=== PATIENT | male | born 1930 | race Two or more races ===

== ENCOUNTER 2018-11-16 16:18 | Inpatient (IN) | payer MEDICARE, MEDICAID ==
[~2018-11-16] VITALS: Ht 177.8 cm; Wt 73.9 kg
[~2018-11-16 16:18] MED LIST: ASPI-1152 PO; LORA-259 PO; VALS1TAB54 PO
[2018-11-16 17:07] LABS: BASOPHILS % (AUTO) 0.3 % (0.0-2.0); EOSINOPHILS % (AUTO) 3.2 % (0.0-6.0); HEMATOCRIT 36 % (39-51); HEMOGLOBIN 11.6 g/dL (13.5-17.5); LYMPHOCYTES # (AUTO) 2.3 /CMM (0.8-4.8); LYMPHOCYTES % (AUTO) 24.6 % (20.0-44.0); MEAN CORPUSCULAR HGB CONC 33 g/dl (31.0-36.0); MEAN CORPUSCULAR VOLUME 95 fL (80-96); MONOCYTES # (AUTO) 0.9 /CMM (0.1-1.30); MONOCYTES % (AUTO) 9.1 % (2.0-12.0); NEUTROPHILS # (AUTO) 5.9 /CMM (1.8-8.9); NEUTROPHILS % (AUTO) 62.8 % (43.0-81.0); PLATELET COUNT (AUTO) 192 /CMM (150-450); RED BLOOD CELL COUNT(AUTO) 3.76 MIL/uL (4.5-6.0); WHITE BLOOD COUNT (AUTO) 9.4 K/uL (4.3-11.0)
[2018-11-16 17:15] LABS: CALCIUM, SERUM 8.1 mg/dL (8.5-10.1); CARBON DIOXIDE 22 mmol/L (21-32); CHLORIDE 109 mmol/L (98-107); CREATININE 1.5 mg/dL (0.6-1.3); GLUCOSE 121 mg/dL (74-106); POTASSIUM 4.8 mmol/L (3.5-5.1); SODIUM SERUM 138 mmol/L (136-145); UREA NITROGEN, BLOOD 29 mg/dL (7-18)
[2018-11-16 17:21] LABS: ALANINE AMINOTRANSFERASE 17 U/L (12-78); ALBUMIN 2.2 g/dL (3.4-5.0); ALKALINE PHOSPHATASE 79 U/L (46-116); ASPARTATE AMINOTRANSFERASE 26 U/L (15-37); BILIRUBIN,DIRECT 0.2 mg/dL (0.0-0.2); BILIRUBIN,TOTAL 0.8 mg/dL (0.2-1.0); TOTAL PROTEIN, SERUM 6.4 g/dL (6.4-8.2)
[2018-11-16] MEDS ORDERED: IV NS 0.9% 1,000 ML BAG IV ONE (17:30)
[2018-11-16] MEDS ORDERED: PIPERACILLIN /TAZOBACTAM 2.25 G in IV D5W 50 ML IV ONE (17:30)
--- NOTE | 2018-11-16 17:37 | NUR ---
Patient awake alert to name only his daughters @ bedside noted x 1 BM large soft brown keep patient clean and dry redness to buttocks ,noted Rt hand bruise from previous admission per daughter .Blood drwn done ,gown ,continue to monitor
--- NOTE | 2018-11-16 18:24 | NUR ---
PAGED [facility].
[2018-11-16] MEDS ORDERED: FAMO20TA8 PO (18:48)
[2018-11-16] MEDS ORDERED: TAMS-12 PO (18:48)
[2018-11-16] MEDS ORDERED: ATOR40TA PO (18:48)
[2018-11-16] MEDS ORDERED: BRIM5DRO2 OP (18:48)
[2018-11-16] MEDS ORDERED: LOSA1TAB42 PO (18:48)
[2018-11-16] MEDS ORDERED: CARV6.252 PO (18:48)
[2018-11-16] MEDS ORDERED: BIMA2.5D5 OP (18:48)
--- NOTE | 2018-11-16 19:40 | NUR ---
PAGED [facility].
--- NOTE | 2018-11-16 19:58 | NUR ---
REFLEX LACTIC DRAWN
--- NOTE | 2018-11-16 20:19 | NUR ---
REPORT GIVEN TO SERENA MAYEN FOR MIGDALIA
[2018-11-16] MEDS ORDERED: ONDANSETRON HCL/PF 4 MG/2 ML VIAL IVP PRN (20:30)
[2018-11-16] MEDS ORDERED: ACETAMINOPHEN 325 MG TABLET PO PRN (20:30)
[2018-11-16] MEDS ORDERED: Z GUARD REMEDY 2 OZ OINT TP PRN (20:30)
[2018-11-16 20:40] VITALS: BP 142/77
--- NOTE | 2018-11-16 20:40 | NUR ---
JIG BORING MACHINE SET UP OPERATOR OPENING NOTE RECEIVED PATIENT A/O X1 PATIENT HAS HX OF ADVANCED DEMENTIA AT THE MOMENT SHOWING NO SIGNS OF DISTRESS. PATIENT IS ON ROOM AIR WITH NO SOB. PATIENT IS ON THE MONITOR WITH SINUS RHYTHM AND A LONG NC OF 24,25. PATIENT IS ON BED REST WITH NO SIGNS OF EXTREMITY DIFFICULTY. PATIENT HAS A LT AC G#18 S/L, AND RT HAND G#20 PATENT AND FLUSHING. ALL SAFETY PRECAUTIONS APPLIED. WILL CONTINUE TO MONITOR PATIENT.
[2018-11-16] MEDS: ENOXAPARIN SODIUM 40 MG/0.4 ML DISP.SYRIN SQ SCH (21:56)
[2018-11-16] MEDS: TAMSULOSIN 0.4 MG CAP.SR.24H PO SCH (22:00)
[2018-11-16] MEDS: IV NS 0.9% 1,000 ML IV PRN (22:01)
--- NOTE | 2018-11-16 22:30 | NUR ---
RN NOTE PATIENT HAS ALTERED MENTAL STATUS, PUT IN AN ORDER FOR SWALLOWING EVALUATION. HELD FLOMAX MEDICATION UNTIL EVALUATION
[2018-11-16] MEDS: LATANOPROST EYE DROP 0.005% 2.5 ML BOTTLE OP SCH (23:14)
[2018-11-17] VITALS (7 sets, daily range): BP systolic 116–145; BP diastolic 45–72
[2018-11-17 07:08] LABS: BASOPHILS % (AUTO) 0.3 % (0.0-2.0); EOSINOPHILS % (AUTO) 6.5 % (0.0-6.0); HEMATOCRIT 30 % (39-51); HEMOGLOBIN 10.1 g/dL (13.5-17.5); LYMPHOCYTES # (AUTO) 2.2 /CMM (0.8-4.8); LYMPHOCYTES % (AUTO) 30.3 % (20.0-44.0); MEAN CORPUSCULAR HGB CONC 34 g/dl (31.0-36.0); MEAN CORPUSCULAR VOLUME 91 fL (80-96); MONOCYTES # (AUTO) 0.6 /CMM (0.1-1.30); MONOCYTES % (AUTO) 8.6 % (2.0-12.0); NEUTROPHILS # (AUTO) 3.9 /CMM (1.8-8.9); NEUTROPHILS % (AUTO) 54.3 % (43.0-81.0); PLATELET COUNT (AUTO) 153 /CMM (150-450); RED BLOOD CELL COUNT(AUTO) 3.27 MIL/uL (4.5-6.0); WHITE BLOOD COUNT (AUTO) 7.1 K/uL (4.3-11.0)
--- NOTE | 2018-11-17 07:10 | NUR ---
HOUSEKEEPER NANNY CLOSING NOTES PATIENT IN BED NO DISTRESS NO SOB. ALL SAFETY PRECAUTION APPLIED. ENDORSED PATIENT TO MORNING NURSE
[2018-11-17 07:18] LABS: CALCIUM, SERUM 7.3 mg/dL (8.5-10.1); CREATININE 1.2 mg/dL (0.6-1.3); POTASSIUM 4.4 mmol/L (3.5-5.1)
[2018-11-17 07:19] LABS: MAGNESIUM 1.8 mg/dL (1.8-2.4); PHOSPHORUS 3.5 mg/dL (2.5-4.9)
[2018-11-17] MEDS ORDERED: LOSARTAN POTASSIUM 50 MG TABLET PO SCH (09:00)
[2018-11-17] MEDS ORDERED: ATORVASTATIN 40 MG TABLET PO SCH (09:00)
[2018-11-17] MEDS: IV NS 0.9% 1,000 ML IV PRN (09:54)
[2018-11-17 11:06] LABS: APPEARANCE,URINE Clear (CLEAR); BILIRUBIN,URINE Negative (NEGATIVE); BLOOD, URINE Trace-lysed Ery/uL (NEGATIVE); COLOR,URINE Yellow (YELLOW); KETONES,URINE Negative (NEGATIVE); LEUKOCYTE ESTERASE ,URINE Small (NEGATIVE); NITRITE, URINE Negative (NEGATIVE); PROTEIN,URINE Trace mg/dl (NEGATIVE); UGLUCOSE Negative (NEGATIVE); UROBILINOGEN,URINE 0.2 EU/dL (0.2)
[2018-11-17 11:15] LABS: BACTERIA,URINE Rare /HPF (None Seen); SQUAMOUS EPITHELIAL CELL,UR Rare /HPF (None Seen)
[2018-11-17] MEDS: CARVEDILOL 6.25 MG TABLET PO SCH ×2 (11:39→19:09)
[2018-11-17] MEDS: FAMOTIDINE (20 MG) 20 MG TABLET PO SCH (11:41)
[2018-11-17] MEDS ORDERED: ZOSYN IVPB 3.375 G in IV D5W 50ml IV ONE (12:00)
--- NOTE | 2018-11-17 18:00 | NUR ---
MS RN CLOSING PATIENT REMAINS A/OX2, ANSWERING QUESTIONS OCCASIONALLY. SLEEPING INTERMITTENTLY THROUGHOUT SHIFT. ON ROOM AIR, NO RESPIRATORY DISTRESS NOTED THROUGHOUT SHIFT. DOWNGRADED TO TELE THIS SHIFT PER DR. VASQUEZ. REMAINED NPO EXCEPT MEDS. IVF RUNNING ORDERED. EEG DONE THIS SHIFT. FAMILY AWARE OF POC. LEFT MESSAGE WITH VALDEZ RAMIREZ FOR FAMILY'S REQUEST FOR DME UPON D/C. NO SIGNIFICANT CHANGES THROUGHOUT SHIFT
--- NOTE | 2018-11-17 19:05 | NUR ---
RN OPENING NOTES: PATIENT IN BED, AWAKE, AND VERBALLY RESPONSIVE. NO SOB. NO PAIN. SAFETY MEASURES IMPLEMENTED. BED LOCKED AND IN LOWEST POSITION. (R) HAND 20G PATENT AND INTACT RUNNING NS 75 MLS/HR. PATIENT IS NPO EXCEPT MEDS. CALL LIGHT PLACED WITHIN REACH. WILL CONT. TO MONITOR.
[2018-11-17] MEDS: PIPERACILLIN /TAZOBACTAM 3.375 G in IV D5W 100 ML IV SCH (20:10)
[2018-11-17] MEDS: ENOXAPARIN SODIUM 40 MG/0.4 ML DISP.SYRIN SQ SCH (20:12)
[2018-11-17] MEDS: TAMSULOSIN 0.4 MG CAP.SR.24H PO SCH (21:36)
[2018-11-17] MEDS: LATANOPROST EYE DROP 0.005% 2.5 ML BOTTLE OP SCH (21:36)
[2018-11-18] MEDS: IV NS 0.9% 1,000 ML IV PRN (03:03)
[2018-11-18 04:00] VITALS: BP 152/71
[2018-11-18] MEDS: PIPERACILLIN /TAZOBACTAM 3.375 G in IV D5W 100 ML IV SCH ×2 (04:34→13:39)
--- NOTE | 2018-11-18 07:00 | NUR ---
RN CLOSING NOTES: PATIENT IN BED, ASLEEP, BUT EASILY AROUSABLE TO VERBAL STIMULI AND LIGHT TOUCH. NO RESPIRATORY DISTRESS. NO C/O PAIN. PATIENT REMAINS NPO EXCEPT MEDS. SAFETY PRECAUTIONS IMPLEMENTED. WILL ENDORSE TO AM SHIFT NURSE FOR CONTINUITY OF CARE.
[2018-11-18 07:06] LABS: BASOPHILS % (AUTO) 0.6 % (0.0-2.0); EOSINOPHILS % (AUTO) 5.5 % (0.0-6.0); HEMATOCRIT 32 % (39-51); HEMOGLOBIN 10.5 g/dL (13.5-17.5); LYMPHOCYTES # (AUTO) 1.9 /CMM (0.8-4.8); LYMPHOCYTES % (AUTO) 23.1 % (20.0-44.0); MEAN CORPUSCULAR HGB CONC 33 g/dl (31.0-36.0); MEAN CORPUSCULAR VOLUME 92 fL (80-96); MONOCYTES # (AUTO) 0.6 /CMM (0.1-1.30); MONOCYTES % (AUTO) 7.6 % (2.0-12.0); NEUTROPHILS # (AUTO) 5.1 /CMM (1.8-8.9); NEUTROPHILS % (AUTO) 63.2 % (43.0-81.0); PLATELET COUNT (AUTO) 151 /CMM (150-450); RED BLOOD CELL COUNT(AUTO) 3.43 MIL/uL (4.5-6.0)
--- NOTE | 2018-11-18 07:15 | NUR ---
MS RN OPENING PATIENT IN BED, SLEEPING, AROUSABLE TO NAME. A/Ox1. ON ROOM AIR, NO RESPIRATORY DISTRESS. CONDOM CATH IN PLACE DRAINING CLEAR YELLOW URINE. NPO EXCEPT MEDS, NOTED TO HAVE 69 BG THIS AM, WILL F/U W/ . R HAND 20G INFUSING NS @75mL/HR, L AC 18G SL. BED ALARM ON, CALL LIGHT WITHIN PLACE, PATIENT UNABLE TO MAKE NEEDS KNOWN, WILL CONT TO MONITOR
[2018-11-18 07:22] LABS: CALCIUM, SERUM 7.7 mg/dL (8.5-10.1); CREATININE 1.2 mg/dL (0.6-1.3); PHOSPHORUS 3.5 mg/dL (2.5-4.9); POTASSIUM 4.3 mmol/L (3.5-5.1)
[2018-11-18 08:00] VITALS: BP 141/60
[2018-11-18] MEDS: CARVEDILOL 6.25 MG TABLET PO SCH ×2 (10:08→16:49)
[2018-11-18] MEDS: FAMOTIDINE (20 MG) 20 MG TABLET PO SCH (10:08)
[2018-11-18] MEDS ORDERED: CEPH-569 PO (14:23)
[2018-11-18 16:49] VITALS: BP 142/82
--- NOTE | 2018-11-18 19:00 | NUR ---
DC NOTE WOUND PICS TAKEN
--- NOTE | 2018-11-18 19:20 | NUR ---
MS RN NOTE CALLED PATIENT FAMILY, TO NOTIFY DAUGHTER THE CAREGIVER OF P ICK TIME. D/C INSTRUCTIONS GIVEN TO DTR. DTR VERBALIZE UNDERSTANDING.AMBULANZ ESTIMATED RESPIRATORY MEDICINE PHYSICIAN TIME WAS 1900. EXPLAINED TO FAMILY SOMETIMES TRANSPORTATION IS LATE. FAMILY VERBALIZE UNDERSTANDING.
--- NOTE | 2018-11-18 19:50 | NUR ---
MS RN NOTE AMBULANZ ARRIVED, REPORT GIVEN TO TRANSPORTATION. IV LINES REMOVED, ASHRAF CATH REMOVED, V/S TAKEN WNL. TRANSFER OF CARE GIVEN OVER TO TRANSPORTATION TEAM, DAUGHTER MADE AWARE OF PATIENT FORMATION FRACTURING OPERATOR. PATIENT TRANSFERRED OUT OF HOSPITAL
[2018-11-19] MEDS ORDERED: VALSARTAN 80 MG TABLET PO SCH (09:00)
== END 2018-11-18 20:00 | disposition home health service (06) | DRG 682 ==
LOC: ER 16:19 → TELE1 20:04 → MEDSG1 11-17 20:19
PROVIDERS: ADMIT Nurse Practitioner Acute Care; ATTEND Student in an Organized Health Care Education/Training Program
DX: N17.0 Acute kidney failure with tubular necrosis (principal); G93.41 Metabolic encephalopathy; I21.A1 Myocardial infarction type 2; I50.32 Chronic diastolic (congestive) heart failure; E87.2 Acidosis; N39.0 Urinary tract infection, site not specified; Z95.1 Presence of aortocoronary bypass graft; I11.0 Hypertensive heart disease with heart failure; E88.09 Other disorders of plasma-protein metabolism, not elsewhere classified; Z95.5 Presence of coronary angioplasty implant and graft; E11.9 Type 2 diabetes mellitus without complications; E78.5 Hyperlipidemia, unspecified; I25.10 Atherosclerotic heart disease of native coronary artery without angina pectoris; F03.90 Unspecified dementia, unspecified severity, without behavioral disturbance, psychotic disturbance, mood disturbance, and anxiety; R55 Syncope and collapse; E86.0 Dehydration; D49.4 Neoplasm of unspecified behavior of bladder
CPT/HCPCS: 36415; 70450-TC; 71045-TC; 80048-TC; 80061-TC; 80076-TC; 81000-TC; 82962-TC; 83605-TC; 83735-TC; 84100-TC; 84484-TC; 85025-TC; 85730-TC; 87040-TC; 87081-TC; 87086-TC; 92526; 92611-TC; 93307-TC; 95819-TC; A4349; G0378; J1650; J2543; J7030; J7060

== ENCOUNTER 2019-08-07 22:31 | Inpatient (IN) | payer MEDICARE, OTHER ==
[~2019-08-07] VITALS: Ht 165.1 cm; Wt 65.8 kg
[~2019-08-07 22:31] MED LIST changes: -ASPI-1152 PO; +ATOR40TA PO; +BIMA2.5D5 OP; +BRIM5DRO2 OP; +CARV6.252 PO; +CEPH-569 PO; +FAMO20TA8 PO; -LORA-259 PO; +LOSA1TAB42 PO; +TAMS-12 PO; -VALS1TAB54 PO
[2019-08-07] MEDS ORDERED: NITROGLYCERIN 0.4 MG/TAB BOTTLE ONE (22:42)
--- NOTE | 2019-08-07 22:45 | NUR ---
PT [id number] FROM HOME FOR SOB SATTING 87% RA. PLACED ON VIA N/C SATTING 100% . NO ACUTE DISTRESS NOTED +HIGH BP; HX DEMENTIA, NON VERBAL. PT CONNECTED TO THE COMPONENT OVERHAUL OPERATOR AND POX. DR BEGUM AT BEDSIDE
--- NOTE | 2019-08-07 22:50 | NUR ---
BLOOD COLLECTED AND SENT TO LAB
[2019-08-07 22:53] LABS: BASOPHILS # (AUTO) 0.1 /CMM (0.0-0.2); BASOPHILS % (AUTO) 0.6 % (0.0-2.0); EOSINOPHILS % (AUTO) 1.2 % (0.0-6.0); HEMATOCRIT 35 % (39-51); HEMOGLOBIN 11.4 g/dL (13.5-17.5); LYMPHOCYTES # (AUTO) 4.2 /CMM (0.8-4.8); LYMPHOCYTES % (AUTO) 39.3 % (20.0-44.0); MEAN CORPUSCULAR HGB CONC 33 g/dl (31.0-36.0); MEAN CORPUSCULAR VOLUME 92 fL (80-96); MONOCYTES # (AUTO) 0.8 /CMM (0.1-1.30); MONOCYTES % (AUTO) 7.8 % (2.0-12.0); NEUTROPHILS # (AUTO) 5.4 /CMM (1.8-8.9); NEUTROPHILS % (AUTO) 51.1 % (43.0-81.0); PLATELET COUNT (AUTO) 360 /CMM (150-450); WHITE BLOOD COUNT (AUTO) 10.6 K/uL (4.3-11.0)
[2019-08-07] MEDS ORDERED: NITROGLYCERIN 0.4 MG/TAB BOTTLE SL ONE ×2 (23:00)
[2019-08-07 23:05] LABS: CARBON DIOXIDE 27 mmol/L (21-32); CHLORIDE 110 mmol/L (98-107); CREATININE 1.4 mg/dL (0.6-1.3); GLUCOSE 141 mg/dL (74-106); POTASSIUM 4.4 mmol/L (3.5-5.1); SODIUM SERUM 143 mmol/L (136-145); UREA NITROGEN, BLOOD 20 mg/dL (7-18)
[2019-08-07] MEDS ORDERED: LIDOCAINE 2% JEL UROJET 10 ML MM ONE (23:06)
[2019-08-07 23:18] LABS: ALANINE AMINOTRANSFERASE 14 U/L (12-78); ALBUMIN 2.7 g/dL (3.4-5.0); ALKALINE PHOSPHATASE 63 U/L (46-116); ASPARTATE AMINOTRANSFERASE 24 U/L (15-37); B-TYPE NATRIURETIC PEPTIDE 33015 PG/ML (0-125); BILIRUBIN,DIRECT 0.2 mg/dL (0.0-0.2); BILIRUBIN,TOTAL 0.5 mg/dL (0.2-1.0); TOTAL PROTEIN, SERUM 6.5 g/dL (6.4-8.2)
[2019-08-07] MEDS ORDERED: FUROSEMIDE 40 MG/4 ML VIAL IV ONE (23:30)
[2019-08-07 23:41] LABS: APPEARANCE,URINE Cloudy (CLEAR); BILIRUBIN,URINE SMALL (NEGATIVE); BLOOD, URINE Large Ery/uL (NEGATIVE); COLOR,URINE Dark (YELLOW); KETONES,URINE Negative (NEGATIVE); LEUKOCYTE ESTERASE ,URINE Large (NEGATIVE); NITRITE, URINE Positive (NEGATIVE); PH,URINE 5.5 (5.0-8.0); PROTEIN,URINE 100 mg/dl (NEGATIVE); UGLUCOSE Negative (NEGATIVE)
--- NOTE | 2019-08-07 23:50 | NUR ---
[place] [phone] PT'S DAUGHTER
[2019-08-08 00:19] LABS: BACTERIA,URINE Few /HPF (None Seen); WBC,URINE 51-80 /HPF (0-3)
[2019-08-08 00:20] LABS: SQUAMOUS EPITHELIAL CELL,UR Few /HPF (None Seen)
[2019-08-08] MEDS ORDERED: MAG HYDROX/AL HYDROX/SIMETH 30 ML UDC PO PRN (00:30)
[2019-08-08] MEDS ORDERED: Z GUARD REMEDY 2 OZ OINT TP PRN (00:30)
[2019-08-08] MEDS ORDERED: ACETAMINOPHEN 325 MG TABLET PO PRN (00:30)
[2019-08-08] MEDS ORDERED: ONDANSETRON HCL/PF 4 MG/2 ML VIAL IVP PRN (00:30)
[2019-08-08] MEDS ORDERED: MAGNESIUM HYDROXIDE 30 ML UDC PO PRN (00:30)
[2019-08-08] MEDS ORDERED: CEFTRIAXONE 1 G in IV D5W 50 ML IV SCH (00:30)
[2019-08-08] MEDS ORDERED: ZOLPIDEM TARTRATE 5 MG TABLET PO PRN (00:30)
[2019-08-08] MEDS ORDERED: HYDROCODONE/APAP 5/325MG 1 EACH TABLET PO PRN (00:30)
[2019-08-08 01:00] VITALS: BP 138/74
--- NOTE | 2019-08-08 01:00 | NUR ---
CASH SALES AUDIT CLERK NOTES PATIENT ARRIVED TO UNIT VIA ACLS PROTOCOL, BROUGHT UP BY REYNA. PATIENT NON-VERBAL, AWAKE IN BED, RESPONDS TO LIGHT PAIN. ON NASAL CANNULA, 4 LITERS, TOLERATING SETTING WITH NON-LABORED BREATHING, WITH NON-PRODUCTIVE COUGH, AND SPO2 100%. IV ACCESS ON LEFT FOREARM 18 GAUGE, SALINE LOCK, INTACT AND PATENT. ASHRAF CATHETER IN PLACE, SKIN WARM AND DRY TO TOUCH. PLACED ON CISTERN ROOM WORKING SUPERVISOR. PATIENT PRESENTS NO PAIN OR DISCOMFORT, PROVIDED COMFORT MEASURES TO PATIENT. SAFETY PRECAUTIONS IN PLACE WITH BED LOCKED, BED IN SEMI-FOWLERS POSITION, BED ALARM ON, BILATERAL SIDE RAILS UP, AND CALL LIGHT WITHIN EASY REACH OF PATIENT. WILL CONTINUE TO MONITOR PATIENT.
[2019-08-08] MEDS ORDERED: CEFTRIAXONE 1 G VIAL ONE (01:25)
[2019-08-08 04:00] VITALS: BP 154/65
[2019-08-08] MEDS: FUROSEMIDE 40 MG/4 ML VIAL IV SCH ×3 (05:43→17:44)
--- NOTE | 2019-08-08 06:35 | NUR ---
DOCUMENT CLERK NOTES PATIENT IN BED SLEEPING, AWAKEN BY LIGHT TOUCH, NON-VERBAL. SPOKE WITH DAUGHTER, JEANNIE, STATED THAT HER DAD TOLERATES PUREE DIET. ON NASAL CANNULA 4 LITERS, NO RESPIRATORY DISTRESS AT THIS TIME. IV ACCESS INTACT AN PATENT SALINE LOCK. ASHRAF CATHETER INTACT AND IN PLACE. SKIN KEPT CLEAN AND DRY. PROVIDED COMFORT MEASURES TO PATIENT, AND MET ALL OF PATIENT'S NEEDS. PATIENT PRESENTS NO PAIN OR DISCOMFORT. SAFETY PRECAUTIONS IN PLACE WITH THE BED IN LOWEST LOCKED POSITION, BED LOCKED, BILATERAL SIDE RAILS UP, BED ALARM ON, AND CALL LIGHTS WITHIN REACH. WILL ENDORSE PLAN OF CARE TO UPCOMING DAYSHIFT NURSE.
[2019-08-08 08:00] VITALS: BP 155/75
[2019-08-08 08:24] LABS: BASOPHILS % (AUTO) 0.3 % (0.0-2.0); EOSINOPHILS % (AUTO) 0.5 % (0.0-6.0); HEMATOCRIT 35 % (39-51); HEMOGLOBIN 11.3 g/dL (13.5-17.5); LYMPHOCYTES # (AUTO) 2.6 /CMM (0.8-4.8); LYMPHOCYTES % (AUTO) 30.6 % (20.0-44.0); MEAN CORPUSCULAR HGB CONC 32 g/dl (31.0-36.0); MEAN CORPUSCULAR VOLUME 94 fL (80-96); MONOCYTES # (AUTO) 0.7 /CMM (0.1-1.30); MONOCYTES % (AUTO) 8.9 % (2.0-12.0); NEUTROPHILS % (AUTO) 59.7 % (43.0-81.0); PLATELET COUNT (AUTO) 273 /CMM (150-450); RED BLOOD CELL COUNT(AUTO) 3.77 MIL/uL (4.5-6.0); WHITE BLOOD COUNT (AUTO) 8.3 K/uL (4.3-11.0)
[2019-08-08 08:31] LABS: ALANINE AMINOTRANSFERASE 12 U/L (12-78); ALBUMIN 2.6 g/dL (3.4-5.0); ALKALINE PHOSPHATASE 58 U/L (46-116); ASPARTATE AMINOTRANSFERASE 26 U/L (15-37); BILIRUBIN,TOTAL 0.5 mg/dL (0.2-1.0); CALCIUM, SERUM 8.4 mg/dL (8.5-10.1); CARBON DIOXIDE 24 mmol/L (21-32); CHLORIDE 108 mmol/L (98-107); CREATININE 1.4 mg/dL (0.6-1.3); GLUCOSE 105 mg/dL (74-106); MAGNESIUM 2.2 mg/dL (1.8-2.4); PHOSPHORUS 4.4 mg/dL (2.5-4.9); POTASSIUM 4.4 mmol/L (3.5-5.1); SODIUM SERUM 142 mmol/L (136-145); TOTAL PROTEIN, SERUM 6.7 g/dL (6.4-8.2); UREA NITROGEN, BLOOD 19 mg/dL (7-18)
[2019-08-08] MEDS: LOSARTAN POTASSIUM 50 MG TABLET PO SCH (08:34)
[2019-08-08] MEDS: ASPIRIN 81 MG TAB.CHEW PO SCH (08:35)
[2019-08-08] MEDS: ENOXAPARIN SODIUM 30 MG/0.3 ML DISP.SYRIN SQ SCH (08:35)
[2019-08-08] MEDS: CARVEDILOL 6.25 MG TABLET PO SCH ×2 (08:35→17:45)
[2019-08-08] MEDS: FAMOTIDINE (20 MG) 20 MG TABLET PO SCH (08:35)
[2019-08-08] MEDS: BRIMONIDINE TARTRATE OPHT SOLN 5 ML BOTTLE OP SCH (09:00)
[2019-08-08] MEDS ORDERED: CLONIDINE HCL 0.1 MG TABLET PO PRN (11:00)
[2019-08-08 16:00] VITALS: BP 131/63
--- NOTE | 2019-08-08 17:25 | NUR ---
Per family, specifically older daughter patient cannot have F/C due to prostate problems. F/C replaced by condom cath and aware.
[2019-08-08] MEDS: LATANOPROST EYE DROP 0.005% 2.5 ML BOTTLE OP SCH (17:45)
[2019-08-08] MEDS ORDERED: BIMATOPROST 2.5 ML BOTTLE OP SCH (18:00)
--- NOTE | 2019-08-08 18:37 | NUR ---
Patient resting in bed comfortably, on TELE SR with PVS HR 68. Patient on O2 3l saturating above 95%.Breathing unlabored and even. Condom catheter in place; output 2200ml. All needs attended, patient kept clean and dry. IV line intact and patent ; flushing well. On puree diet ; noted with good appetite. Safety precautions in place, bed in locket and lower position , side rails upx3 , call light within reach. Will endorse to next shift for MIGDALIA
--- NOTE | 2019-08-08 19:14 | NUR ---
DRUM DRIER OPERATOR NOTES PATIENT RECEIVED IN BED RESTING COMFORTABLY, ON NASAL CANNULA 3 LITERS, WITH NO RESPIRATORY DISTRESS AT THIS TIME, NO SOB NOTED, AND WITH EVEN NON-LABORED BREATHING. PATIENT NON-VERBAL, RESPONSIVE TO NAME AND LIGHT TOUCH. IV ACCESS INTACT AND PATENT ON LEFT FOREARM. ON TON CONTAINER SHIPPER, 70'S. CONDOM CATHETER IN PLACE, NO LEAKAGE PRESENT. SKIN WARM AND DRY TO TOUCH. PATIENT PRESENTS WITH NO PAIN OR DISCOMFORT AT THIS TIME. SAFETY PRECAUTIONS IMPLEMENTED, WITH BED LOCKED, BED IN THE LOWEST POSITION, BILATERAL SIDE RAILS UP, AND CALL LIGHT WITHIN EASY REACH. WILL CONTINUE TO MONITOR PATIENT.
[2019-08-08 20:00] VITALS: BP 152/71
[2019-08-08 20:04] VITALS: BP 152/71
[2019-08-08] MEDS: ATORVASTATIN 40 MG TABLET PO SCH (21:46)
[2019-08-08] MEDS: TAMSULOSIN 0.4 MG CAP.SR.24H PO SCH (21:46)
[2019-08-08] MEDS: CEFTRIAXONE 1 G in IV D5W 50 ML IV SCH (22:23)
--- NOTE | 2019-08-08 22:50 | NUR ---
PROFESSOR OF EDUCATION NOTES REPORT GIVEN TO SERENA MOLINA. PATIENT RESTING COMFORTABLY IN BED, NASAL CANNULA, 3 LITERS. WITH NO SIGNS OF RESPIRATORY DISTRESS AT THIS TIME, WITH NON-LABORED BREATHING. IV ACCESS INTACT AND PATENT ON LEFT FOREARM. SAFETY PRECAUTIONS IMPLEMENTED BED LOCKED, BED IN THE LOWEST POSITION, AND CALL LIGHT WITHIN EASY REACH OF PATIENT.
[2019-08-09] VITALS: BP 138/61
[2019-08-09] MEDS: FUROSEMIDE 40 MG/4 ML VIAL IV SCH ×3 (00:28→12:00)
[2019-08-09 04:00] VITALS: BP 147/73
[2019-08-09 04:53] LABS: CREATININE, URINE < 13.0 MG/DL (30.0-125.0); URINE SODIUM, RANDOM 132 mmol/l (40-220); URINE TOTAL PROTEIN 47.7 mg/dL (0-11.9)
[2019-08-09 05:09] LABS: APPEARANCE,URINE CLEAR (CLEAR); BILIRUBIN,URINE NEGATIVE (NEGATIVE); BLOOD, URINE LARGE Ery/uL (NEGATIVE); COLOR,URINE RED (YELLOW); KETONES,URINE NEGATIVE (NEGATIVE); LEUKOCYTE ESTERASE ,URINE SMALL (NEGATIVE); NITRITE, URINE NEGATIVE (NEGATIVE); PH,URINE 5.5 (5.0-8.0); PROTEIN,URINE 30 mg/dl (NEGATIVE); UGLUCOSE NEGATIVE (NEGATIVE); UROBILINOGEN,URINE 0.2 EU/dL (0.2)
[2019-08-09 05:13] LABS: BACTERIA,URINE Few /HPF (None Seen); RBC,URINE TOO NUMEROUS TO COUN /HPF (0-2); SQUAMOUS EPITHELIAL CELL,UR Rare /HPF (None Seen); WBC,URINE 21-50 /HPF (0-3)
[2019-08-09 05:54] LABS: EOSINOPHIL,URINE None Seen
[2019-08-09 06:45] LABS: BASOPHILS % (AUTO) 0.5 % (0.0-2.0); EOSINOPHILS % (AUTO) 1.6 % (0.0-6.0); HEMATOCRIT 38 % (39-51); HEMOGLOBIN 12.6 g/dL (13.5-17.5); LYMPHOCYTES # (AUTO) 2.9 /CMM (0.8-4.8); LYMPHOCYTES % (AUTO) 31.9 % (20.0-44.0); MEAN CORPUSCULAR HGB CONC 33 g/dl (31.0-36.0); MEAN CORPUSCULAR VOLUME 91 fL (80-96); MONOCYTES # (AUTO) 0.8 /CMM (0.1-1.30); MONOCYTES % (AUTO) 8.6 % (2.0-12.0); NEUTROPHILS # (AUTO) 5.3 /CMM (1.8-8.9); NEUTROPHILS % (AUTO) 57.4 % (43.0-81.0); PLATELET COUNT (AUTO) 305 /CMM (150-450); RED BLOOD CELL COUNT(AUTO) 4.22 MIL/uL (4.5-6.0); WHITE BLOOD COUNT (AUTO) 9.2 K/uL (4.3-11.0)
--- NOTE | 2019-08-09 06:52 | NUR ---
PHARMACY BILLING ADJUDICATOR CLOSING NOTES PATIENT IN BED RESTING, NON-VERBAL, SLIGHT MUMBLED. ON 3L OF O2 WITH BREATHING EVEN AND UNLABORED, NO SOB NOTED. TELE MONITORS READING SR WITH PVC. IV LOCATED ON LFA #18 TKO. NO COMPLAINTS OF PAIN OR DISCOMFORT- NO FACIAL GRIMACING NOTED. SAFETY PRECAUTIONS IN PLACE WITH BED IN LOWEST POSITION, CALL LIGHT WITHIN REACH, BREAKS ON, SIDE RAILS UP. ALL NEEDS ATTENDED TO. PATIENT KEPT CLEAN AND DRY THROUGHOUT THE NIGHT. WILL ENDORSE TO ONCOMING SHIFT ABOUT MIGDALIA.
[2019-08-09 07:01] LABS: CALCIUM, SERUM 8.5 mg/dL (8.5-10.1); CREATININE 1.3 mg/dL (0.6-1.3); PHOSPHORUS 3.9 mg/dL (2.5-4.9); POTASSIUM 3.1 mmol/L (3.5-5.1)
[2019-08-09 07:04] LABS: THYROID STIMULATING HORMONE 1.147 uIU/mL (0.358-3.74)
--- NOTE | 2019-08-09 07:30 | NUR ---
HOME CARE MUSIC THERAPIST Open Notes Patient is in bed slightly mumbles. No signs of distress with 3L Nasal Cannula. L FA #18G infusing TKO NS at 3 ml/hr. Bed is in low position with side rails up x 2 for safety. Condom catheter is intact. Call light is within reach. Will continue to monitor.
[2019-08-09 08:00] VITALS: BP 102/58
[2019-08-09] MEDS: ASPIRIN 81 MG TAB.CHEW PO SCH (08:48)
[2019-08-09] MEDS: CARVEDILOL 6.25 MG TABLET PO SCH ×2 (08:50→16:33)
[2019-08-09] MEDS: LOSARTAN POTASSIUM 50 MG TABLET PO SCH (08:51)
[2019-08-09] MEDS: FAMOTIDINE (20 MG) 20 MG TABLET PO SCH (08:52)
[2019-08-09] MEDS: ENOXAPARIN SODIUM 30 MG/0.3 ML DISP.SYRIN SQ SCH (08:53)
[2019-08-09] MEDS: BRIMONIDINE TARTRATE OPHT SOLN 5 ML BOTTLE OP SCH (08:54)
[2019-08-09] MEDS: POTASSIUM CHLORIDE 20 MEQ TAB.PRT.SR PO SCH ×3 (08:56→11:21)
[2019-08-09 16:00] VITALS: BP 121/56
[2019-08-09 16:42] VITALS: BP 121/56
[2019-08-09] MEDS: LATANOPROST EYE DROP 0.005% 2.5 ML BOTTLE OP SCH (17:22)
--- NOTE | 2019-08-09 18:42 | NUR ---
SWATCH PASTER Closing Notes Patient is calm and resting, nonverbal. With no signs of distress. IV L FA #18G intact. Scheduled medication were given. Condom cath intact. Bed is in low position side rails up x 2 for safety. Call light within reach. Will endorse to night shift supervisor.
[2019-08-09 20:00] VITALS: BP_SYST 141; BP_SYST 172; BP_DIAS 72; BP_DIAS 80; BP_DIAS 83
--- NOTE | 2019-08-09 20:00 | NUR ---
MS/RN OPENING NOTES PATIENT RESTING IN BED ON OXYGEN VIA NC AT 3LITER, RESPIRATIONS EVEN AND UNLABORED, LEFT SIDED WEAKNEST, ON BED REST, ASLEEP BUT AROUSES, WITHSACRAL AND PERINEAL REDNESS, ON CARDIAC DIET AND TO GFED AND TO CRUSH WITH MEDS, LEFT FORE ARM GAUGE 18 PATENT, CONDOM CATHETER DRAINING URINE, RECEIVED ENDORSEMENT FROM AM RN FOR MIGDALIA, TO MONITOR PATIENT AND CONTINUE CARE, BED LOCKED, CALL LIGHTS WITHIN REACH, OFFER AND PROVIDE FLUIDS.
[2019-08-09] MEDS: ATORVASTATIN 40 MG TABLET PO SCH (21:34)
[2019-08-09] MEDS: TAMSULOSIN 0.4 MG CAP.SR.24H PO SCH (21:34)
[2019-08-09] MEDS: CEFTRIAXONE 1 G in IV D5W 50 ML IV SCH (22:37)
--- NOTE | 2019-08-10 06:16 | NUR ---
323-1 MS/RN NOTES PATIENT IN BED, ABLE TO SLEEP DURING THE NIGHT, MONITORED AND PROVIDED CARE, ON OXYGEN VIA NC AT 3LITER AND TAPERED, KEPT SKIN INTACT AND DRY, ASSISTED IN REPOSITIONING AND TURNING. BED LOCKED, CALL LIGHTS WITHIN REACH, ABLE TO DRINK MINIMAL FLUIDS AND OFFERED AND PROVIDED SOME SNACKS, KEPT HOB WHILE BEING FED. ASPIRATIONS AND FALL PRECAUTIONS, LEFT FOREARM GAUGE 18 PATENT, CONDOM CATHETER PLACED AND DRAINING ADEQUATE URINE OUTPUT. TO ENDORSE TO AM RN FOR MIGDALIA.
--- NOTE | 2019-08-10 07:30 | NUR ---
MS RN Open Notes Patient is in bed awake and alert, non-verbal. No signs of distress with 3L of Nasal Cannula. IV L FA #18G. Condom catheter intact with visible urine drainage. Bed is in low position with side rails up x 2 for safety. Call light is within reach. Will continue to monitor.
[2019-08-10 07:34] LABS: BASOPHILS % (AUTO) 0.4 % (0.0-2.0); EOSINOPHILS % (AUTO) 2.4 % (0.0-6.0); HEMATOCRIT 34 % (39-51); HEMOGLOBIN 11.2 g/dL (13.5-17.5); LYMPHOCYTES # (AUTO) 2.6 /CMM (0.8-4.8); LYMPHOCYTES % (AUTO) 33.2 % (20.0-44.0); MEAN CORPUSCULAR HGB CONC 33 g/dl (31.0-36.0); MEAN CORPUSCULAR VOLUME 91 fL (80-96); MONOCYTES # (AUTO) 0.8 /CMM (0.1-1.30); MONOCYTES % (AUTO) 10.6 % (2.0-12.0); NEUTROPHILS # (AUTO) 4.1 /CMM (1.8-8.9); NEUTROPHILS % (AUTO) 53.4 % (43.0-81.0); PLATELET COUNT (AUTO) 264 /CMM (150-450); RED BLOOD CELL COUNT(AUTO) 3.72 MIL/uL (4.5-6.0); WHITE BLOOD COUNT (AUTO) 7.7 K/uL (4.3-11.0)
[2019-08-10 08:00] VITALS: BP 111/57
[2019-08-10 08:02] LABS: ALBUMIN 2.5 g/dL (3.4-5.0); BILIRUBIN,TOTAL 0.6 mg/dL (0.2-1.0); CALCIUM, SERUM 8.1 mg/dL (8.5-10.1); CREATININE 1.3 mg/dL (0.6-1.3); MAGNESIUM 1.8 mg/dL (1.8-2.4); PHOSPHORUS 3.4 mg/dL (2.5-4.9); POTASSIUM 3.8 mmol/L (3.5-5.1); TOTAL PROTEIN, SERUM 6.4 g/dL (6.4-8.2)
[2019-08-10] MEDS: FAMOTIDINE (20 MG) 20 MG TABLET PO SCH (08:43)
[2019-08-10] MEDS: ASPIRIN 81 MG TAB.CHEW PO SCH (08:43)
[2019-08-10] MEDS: ENOXAPARIN SODIUM 30 MG/0.3 ML DISP.SYRIN SQ SCH (08:45)
[2019-08-10] MEDS: BRIMONIDINE TARTRATE OPHT SOLN 5 ML BOTTLE OP SCH (08:47)
[2019-08-10] MEDS: LOSARTAN POTASSIUM 50 MG TABLET PO SCH (09:00)
[2019-08-10] MEDS: CARVEDILOL 6.25 MG TABLET PO SCH ×2 (09:00→16:50)
[2019-08-10] MEDS ORDERED: BUMETANIDE INJ 4 MG in IV D5W 24 ML IV ONE (11:00)
--- NOTE | 2019-08-10 12:00 | NUR ---
RN Notes Nasal Cannula was off for a couple of minutes, oxygen saturation decreased to 88%. Informed Dr. Aguilar. Case management to arrange for home O2.
[2019-08-10 15:10] LABS: *SPE A/G RATIO 0.8 (0.7-1.7); *SPE ALBUMIN 2.7 g/dL (2.9-4.4); *SPE ALPHA-1-GLOBULIN 0.3 g/dL (0.0-0.4); *SPE ALPHA-2-GLOBULIN 0.6 g/dL (0.4-1.0); *SPE GLOBULIN, TOTAL 3.5 g/dL (2.2-3.9); *SPE M-SPIKE 0.2 g/dL (Not Observed); *SPEGAMMA GLOBULIN 1.5 g/dL (0.4-1.8)
[2019-08-10 16:00] VITALS: BP 112/63
[2019-08-10] MEDS: LATANOPROST EYE DROP 0.005% 2.5 ML BOTTLE OP SCH (17:06)
--- NOTE | 2019-08-10 18:23 | NUR ---
MS RN Closing Notes Patient is in bed resting calm and cooperative, non-verbal. No signs of distress with 3L nasal cannula. IV L FA#18G intact. Condom catheter intact. Scheduled medications were given. Bed is in low position with side rails up x 2 for safety. Call light within reach. Will endorse to the night baker.
--- NOTE | 2019-08-10 19:33 | NUR ---
MS RN NOTES PATIENT RECEIVED IN BED RESTING COMFORTABLY. AWAKEN BY NAME AND LIGHT TOUCH, ALERT AND ORIENTED X 1. PATIENT ON NASAL CANNULA, 3L, WITH NO RESPIRATORY DISTRESS AT THIS TIME, WITH EVEN NON-LABORED BREATHING, AND NO SOB NOTED. CONDOM CATHETER IN PLACE. SKIN WARM AND DRY TO TOUCH, IV ACCESS INTACT AND PATENT ON LEFT FOREARM. SAFETY PRECAUTIONS IMPLEMENTED WITH BED LOCKED, BED IN THE LOWEST POSITION, BILATERAL SIDE RAILS UP, BED ALARM ON, AND CALL LIGHT WITHIN EASY REACH OF THE PATIENT. WILL CONTINUE TO MONITOR PATIENT.
[2019-08-10 20:00] VITALS: BP 151/83
[2019-08-10] MEDS: ATORVASTATIN 40 MG TABLET PO SCH (21:56)
[2019-08-10] MEDS: TAMSULOSIN 0.4 MG CAP.SR.24H PO SCH (21:56)
[2019-08-10] MEDS: CEFTRIAXONE 1 G in IV D5W 50 ML IV SCH (22:38)
[2019-08-11 06:17] LABS: BASOPHILS % (AUTO) 0.5 % (0.0-2.0); EOSINOPHILS % (AUTO) 1.9 % (0.0-6.0); HEMATOCRIT 34 % (39-51); HEMOGLOBIN 11.1 g/dL (13.5-17.5); LYMPHOCYTES # (AUTO) 2.3 /CMM (0.8-4.8); LYMPHOCYTES % (AUTO) 30.4 % (20.0-44.0); MEAN CORPUSCULAR HGB CONC 33 g/dl (31.0-36.0); MEAN CORPUSCULAR VOLUME 91 fL (80-96); MONOCYTES # (AUTO) 0.8 /CMM (0.1-1.30); MONOCYTES % (AUTO) 10.5 % (2.0-12.0); NEUTROPHILS # (AUTO) 4.2 /CMM (1.8-8.9); NEUTROPHILS % (AUTO) 56.7 % (43.0-81.0); PLATELET COUNT (AUTO) 278 /CMM (150-450); RED BLOOD CELL COUNT(AUTO) 3.75 MIL/uL (4.5-6.0); WHITE BLOOD COUNT (AUTO) 7.5 K/uL (4.3-11.0)
--- NOTE | 2019-08-11 06:27 | NUR ---
MS RN NOTES PATIENT IN BED RESTING, COMFORTABLY. ON NASAL CANNULA 3LITERS, NO RESPIRATORY DISTRESS AT THIS TIME. IV ACCESS INTACT AN PATENT SALINE LOCK. CONDOM CATHETER INTACT AND IN PLACE. SKIN KEPT CLEAN AND DRY. PROVIDED COMFORT MEASURES TO PATIENT, AND MET ALL OF PATIENT'S NEEDS. PATIENT PRESENTS NO PAIN OR DISCOMFORT. SAFETY PRECAUTIONS IN PLACE WITH THE BED IN LOWEST LOCKED POSITION, BED LOCKED, BILATERAL SIDE RAILS UP, BED ALARM ON, AND CALL LIGHTS WITHIN REACH. WILL ENDORSE PLAN OF CARE TO UPCOMING DAYSHIFT NURSE.
[2019-08-11 06:29] LABS: CALCIUM, SERUM 7.8 mg/dL (8.5-10.1); CREATININE 1.2 mg/dL (0.6-1.3); MAGNESIUM 1.9 mg/dL (1.8-2.4); PHOSPHORUS 3.6 mg/dL (2.5-4.9); POTASSIUM 3.4 mmol/L (3.5-5.1)
--- NOTE | 2019-08-11 07:15 | NUR ---
MS RN NOTES PATIENT IN BED EYES CLOSED, EASILY AWAKEN. NO ACUTE DISTRESS NOTED. BREATHING UNLABORED. IV ACCESS PATENT AND INTACT, NO REDNESS NO SWELLING NOTED.ASHRAF CATHETER INTACT DRAINING WELL. SAFETY MEASURES IN PLACE, CALL LIGHT WITHIN EACH WILL CONTINUE TO MONITOR ACCORDINGLY.
--- NOTE | 2019-08-11 07:45 | NUR ---
MS RN NOTES SEEN AND EVALUATED BY DR PEDRO KIMBROUGH, ORDER TO PUT PATIENT ON ROOM AIR. PLACED PATIENT ON ROOM AIR SATURATING AT 95-97%, NO SOB NOTED. WILL CONTINUE TO MONITOR PATIENT.
[2019-08-11 08:00] VITALS: BP 127/81
[2019-08-11] MEDS: ASPIRIN 81 MG TAB.CHEW PO SCH (08:28)
[2019-08-11] MEDS: FAMOTIDINE (20 MG) 20 MG TABLET PO SCH (08:28)
[2019-08-11] MEDS: BRIMONIDINE TARTRATE OPHT SOLN 5 ML BOTTLE OP SCH (08:28)
[2019-08-11] MEDS: CARVEDILOL 6.25 MG TABLET PO SCH (08:29)
[2019-08-11 08:30] VITALS: BP 127/81
[2019-08-11] MEDS: LOSARTAN POTASSIUM 50 MG TABLET PO SCH (08:30)
[2019-08-11] MEDS: ENOXAPARIN SODIUM 30 MG/0.3 ML DISP.SYRIN SQ SCH (08:31)
[2019-08-11] MEDS ORDERED: POTASSIUM CHLORIDE 20 MEQ TAB.PRT.SR PO SCH (10:30)
[2019-08-11] MEDS ORDERED: ASPI-1169 PO (14:08)
[2019-08-11] MEDS ORDERED: POTA20TA83 PO (14:08)
[2019-08-11] MEDS ORDERED: FURO40TA5 PO (14:08)
--- NOTE | 2019-08-11 15:40 | NUR ---
MARKETING CAMPAIGN ANALYST NOTES PATIENT DISCHARGE HOME WITH [facility], AN ACUTE [facility]ARE [facility] WITH STABLE VITAL SIGNS, ALERT, NO ACUTE DISTRESS NOTED, BREATHING UNLABORED, NO SOB NOTED . DISCHARGE INSTRUCTIONS GIVEN TO THE DAUGHTER JEANNIE JAMESDEONTEMAYNOR, VERBALIZED UNDERSTANDING, DISCHARGE PAPERS HANDED OVER TO EMT PERSONNEL TO BE GIVEN TO DAUGHTER. ALL BELONGINGS ACCOUNTED FOR. IV ACCESS REMOVED, NO REDNESS, NO BLEEDING, NO SWELLING NOTED. PICKED UP VIA AMBULANCE IN A GURNEY ACCOMPANIED BY 2 EMT PERSONNEL IN STABLE CONDITION.
[2019-08-12] MEDS ORDERED: FUROSEMIDE 40 MG TABLET PO SCH (09:00)
== END 2019-08-11 15:45 | disposition home health service (06) | DRG 291 ==
LOC: ER 22:34 → TELE 08-08 00:37 → MED 08-09 07:49
PROVIDERS: ADMIT Internal Medicine; ATTEND Student in an Organized Health Care Education/Training Program
DX: I13.0 Hypertensive heart and chronic kidney disease with heart failure and stage 1 through stage 4 chronic kidney disease, or unspecified chronic kidney disease (principal); I50.33 Acute on chronic diastolic (congestive) heart failure; G93.41 Metabolic encephalopathy; N17.0 Acute kidney failure with tubular necrosis; N39.0 Urinary tract infection, site not specified; J98.11 Atelectasis; J90 Pleural effusion, not elsewhere classified; Z95.1 Presence of aortocoronary bypass graft; F03.90 Unspecified dementia, unspecified severity, without behavioral disturbance, psychotic disturbance, mood disturbance, and anxiety; N18.9 Chronic kidney disease, unspecified; K57.30 Diverticulosis of large intestine without perforation or abscess without bleeding; E11.22 Type 2 diabetes mellitus with diabetic chronic kidney disease; D63.8 Anemia in other chronic diseases classified elsewhere; Z95.5 Presence of coronary angioplasty implant and graft; Z86.79 Personal history of other diseases of the circulatory system; I25.10 Atherosclerotic heart disease of native coronary artery without angina pectoris; Z79.899 Other long term (current) drug therapy; E78.5 Hyperlipidemia, unspecified; Z87.448 Personal history of other diseases of urinary system; N40.0 Benign prostatic hyperplasia without lower urinary tract symptoms; I71.4 Abdominal aortic aneurysm, without rupture; I86.1 Scrotal varices; N50.3 Cyst of epididymis; N43.3 Hydrocele, unspecified; N28.1 Cyst of kidney, acquired; K80.20 Calculus of gallbladder without cholecystitis without obstruction
CPT/HCPCS: 36415; 71045-TC; 76700-TC; 80048-TC; 80053-TC; 80061-TC; 80076-TC; 81000-TC; 82550-TC; 82570-TC; 82962-TC; 83735-TC; 83880; 83970; 84100-TC; 84155; 84155-TC; 84165; 84300-TC; 84443-TC; 84484-TC; 85025-TC; 85730-TC; 87081-TC; 87086-TC; 93307-TC; 97110-TC; 97112-TC; 97530-TC; A4349; G0378; J0696; J1650; J1940; J3490; J7050; J7060